=== PATIENT | female | born 1965 | race Caucasian/White ===

== ENCOUNTER 2024-01-29 05:52 | Day surgery (SDC) | payer OTHER, SELFPAY ==
[2024-01-20 16:15] LABS: BASOPHILS # (AUTO) 0.1 X10'3 (0-0.2); BASOPHILS % (AUTO) 0.8 % (0-1); EOSINOPHILS % (AUTO) 0.6 % (0-6); LYMPHOCYTES # (AUTO) 2.6 X10'3 (1.1-4.8); LYMPHOCYTES % (AUTO) 35.5 % (21-51); MEAN CORPUSCULAR HEMOGLOBIN 30.9 PG (27.0-31.0); MEAN CORPUSCULAR HGB CONC 33.5 g/dL (33.0-36.5); MEAN CORPUSCULAR VOLUME 92.2 FL (78-98); MEAN PLATELET VOLUME 8.1 FL (7.4-10.4); MONOCYTES # (AUTO) 0.7 X10'3 (0-0.9); MONOCYTES % (AUTO) 9.3 % (2-12); NEUTROPHILS # (AUTO) 3.9 X10'3 (1.8-7.7); NEUTROPHILS % (AUTO) 53.8 % (42-75); PRE OP HEMATOCRIT 41.5 % (35.0-45.0); PRE OP HEMOGLOBIN 13.9 g/dL (12.0-16.0); PRE OP PLATELET COUNT 203 X10'3 (140-440); PRE OP WHITE BLOOD COUNT 7.2 10'3 (4.8-10.8); RED CELL DISTRIBUTION WIDTH 13.1 % (11.5-14.5)
[2024-01-20 16:16] LABS: BILIRUBIN,URINE NEGATIVE (Neg); CLARITY,URINE CLOUDY (Clear); COLOR,URINE YELLOW (Yellow); GLUCOSE, URINE NEGATIVE (Neg); KETONES,URINE NEGATIVE (Neg); LEUKOCYTE ESTERASE ,URINE SMALL (Neg); NITRITES, URINE NEGATIVE (Neg); OCCULT BLOOD,URINE NEGATIVE (Neg); PROTEIN,URINE NEGATIVE (Neg); UROBILINOGEN,URINE 0.2 E.U/dL (0.2-1.0)
[2024-01-20 16:25] LABS: UA COLLECTION TYPE CLN CATCH MIDSTREAM
[2024-01-20 16:26] LABS: AMORPHOUS PHOSPHATES 3+; BACTERIA,URINE 1+ /HPF (Neg); MUCUS STRANDS FEW /LPF (Neg); RBC,URINE 0-2 /HPF (0-2); SQUAMOUS EPITHELIAL CELL,UR FEW /LPF (FEW); WBC,URINE 0-4 /HPF (0-4)
[2024-01-20 16:30] LABS: ALBUMIN/GLOBULIN RATIO 1.2 (1.1-1.5); ALKALINE PHOSPHATASE 96 IU/L (46-116); BLOOD UREA NITROGEN 14 MG/DL (7-18); CALCIUM 9.3 MG/DL (8.5-10.1); CHLORIDE 105 MMOL/L (99-107); CREATININE 0.61 MG/DL (0.40-0.90); PRE OP ALT 21 U/L (30-65); PRE OP ANION GAP 7 (8-16); PRE OP AST 15 U/L (10-37); PRE OP BILIRUB, TOTAL 0.9 MG/DL (0.0-1.0); PRE OP GLUCOSE 80 MG/DL (70-104); PRE OP POTASSIUM 3.8 MMOL/L (3.4-5.1); PRE OP SODIUM 140 MMOL/L (135-145); TOTAL CARBON DIOXIDE 27.9 MMOL/L (24-32); TOTAL PROTEIN 7.3 G/DL (6.4-8.2); eGFR > 90 ML/MIN
[2024-01-29] VITALS (21 sets, daily range): BP systolic 107–130; BP diastolic 51–79; PULSE 62–77; RESP 15–20; TEMP 97.1–98.7; O2SAT 95–100
[~2024-01-29] VITALS: Ht 172.7 cm; Wt 64.3 kg
[~2024-01-29 05:52] MED LIST: [UNRECOGNIZED DRUG - OTHER] PO
[2024-01-29] MEDS: famotidine 20mg tablet PO ONE (06:23)
[2024-01-29] MEDS: ringers solution, lacted 1,000 ML IV SCH ×3 (06:24→11:15)
[2024-01-29] MEDS: NORMAL SALINE IV ONE (06:26)
[2024-01-29] MEDS: GENTAMICIN IV ONE (06:26)
[2024-01-29] MEDS: clindamycin-Cleocin 900mg/D5W 50 ML IV ONE (06:27)
[2024-01-29] MEDS: neomy sulf/polymyxin B sulf. GU irrigation 1ml amp IR ONE ×2 (07:11→10:17)
[2024-01-29] MEDS ORDERED: midazolam 1 mg/ML 2ml injection ONE (07:26)
[2024-01-29] MEDS ORDERED: fentaNYL/PF 50MCG/1 ML 2ML syringe ONE ×2 (07:26→10:30)
[2024-01-29] MEDS ORDERED: acetaminophen 1,000mg/100ml IV 100 ML IV ONE (07:28)
[2024-01-29] MEDS ORDERED: propofol inj 20 ML IV ONE (07:30)
[2024-01-29] MEDS ORDERED: ondansetron/PF 4mg/2ml inj ONE (07:30)
[2024-01-29] MEDS ORDERED: LIDOcaine 2% (20mg/ml) 5ml vial ONE (07:30)
[2024-01-29] MEDS ORDERED: rocuronium 10mg/ml inj IV ONE ×2 (07:30→09:28)
[2024-01-29] MEDS ORDERED: dexamethasone sod phosphate 4mg/ml inj. ONE (07:31)
[2024-01-29] MEDS ORDERED: sevoflurane 250ml liquid IH ONE (07:35)
[2024-01-29] MEDS ORDERED: morphine 4 MG/ML inj SYRINge IV PRN (08:35)
[2024-01-29] MEDS ORDERED: ondansetron/PF 4mg/2ml inj IV PRN ×2 (08:35→11:15)
[2024-01-29] MEDS ORDERED: morphine 2 MG/ML inj. syringe IV PRN (08:35)
[2024-01-29] MEDS ORDERED: labetalol 20mg/4ml (5mg/ml) syringe IV PRN (08:35)
[2024-01-29] MEDS ORDERED: hydrALAZINE 20mg/ml inj. IV PRN (08:35)
[2024-01-29] MEDS ORDERED: fentaNYL/PF 50MCG/1 ML 2ML syringe IV PRN ×2 (08:35)
[2024-01-29] MEDS: BUPIVAcaine/PF 2.5mg/ml (0.25%) 10ml vial ONE (08:40)
[2024-01-29] MEDS: BUPIVAcaine 2.5mg/ml inj 50ml vial (contains preservative) ONE (08:41)
[2024-01-29] MEDS: vasoPRESSIN 20 units/ml inj. ONE (08:41)
[2024-01-29] MEDS: BUPIVAcaine 0.25% w/Epi /PF 30ml vial ONE (09:53)
[2024-01-29] MEDS: clindamycin phosphate 40gm vag cream ONE (10:22)
[2024-01-29] MEDS ORDERED: fluoroscein sod 10% (100mg/ml) 5ml vial ONE (10:37)
[2024-01-29] MEDS ORDERED: metoclopramide 5 mg/ml inj IV PRN (11:15)
[2024-01-29] MEDS ORDERED: LORazepam 2 mg/ml vial IV PRN (11:15)
[2024-01-29] MEDS ORDERED: HYDROcodone/acetaminophen 10/325mg tab PO PRN (11:15)
[2024-01-29] MEDS ORDERED: magnesium hydroxide 30ml (MOM) UD suspension PO PRN (11:15)
[2024-01-29] MEDS ORDERED: diphenhydrAMINE 50 mg/ml inj IV PRN (11:15)
[2024-01-29] MEDS ORDERED: temazepam 15mg capsule PO PRN (11:15)
[2024-01-29] MEDS ORDERED: normal saline 500ml IV soln 500 ML IV PRN (11:15)
[2024-01-29] MEDS: ketorolac trometh. 30mg/ml inj. IV PRN (14:26)
[2024-01-29] MEDS: HYDROcodone/acetaminophen 10/325mg tab PO PRN (17:58)
[2024-01-29] MEDS: docusate sod 100mg capsule PO SCH (20:10)
[2024-01-30 02:04] VITALS: BP 116/53; PULSE 80; RESP 18; TEMP 99.2; O2SAT 98
[2024-01-30 06:00] VITALS: BP 108/46; PULSE 79; RESP 16; TEMP 98; O2SAT 95
[2024-01-30 06:02] LABS: ALBUMIN 2.9 G/DL (3.4-5.0); ANION GAP 4 (8-16); BLOOD UREA NITROGEN 10 MG/DL (7-18); BUN/CREATININE RATIO 15.6 (10.0-20.0); CALCIUM 8.7 MG/DL (8.5-10.1); CHLORIDE 108 MMOL/L (99-107); CREATININE 0.64 MG/DL (0.40-0.90); GLUCOSE 112 MG/DL (70-104); POTASSIUM 3.9 MMOL/L (3.5-5.1); SODIUM 139 MMOL/L (135-145); TOTAL CARBON DIOXIDE 26.7 MMOL/L (24-32); eCRCL 98 ML/MIN; eGFR > 90 ML/MIN
[2024-01-30 06:04] LABS: BASOPHILS % (AUTO) 0.3 % (0-1); EOSINOPHILS % (AUTO) 0 % (0-6); HEMATOCRIT 34.8 % (35.0-45.0); HEMOGLOBIN 11.7 g/dl (12.0-16.0); LYMPHOCYTES # (AUTO) 1.5 X10'3 (1.1-4.8); LYMPHOCYTES % (AUTO) 10.2 % (21-51); MEAN CORPUSCULAR HGB CONC 33.6 g/dL (33.0-36.5); MEAN CORPUSCULAR VOLUME 92.3 FL (78-98); MONOCYTES # (AUTO) 1.2 X10'3 (0-0.9); MONOCYTES % (AUTO) 8.2 % (2-12); NEUTROPHILS # (AUTO) 11.9 X10'3 (1.8-7.7); NEUTROPHILS % (AUTO) 81.3 % (42-75); PLATELET COUNT 188 X10'3 (140-440); RED BLOOD COUNT 3.77 X10'6 (4.20-5.60); WHITE BLOOD COUNT 14.7 X10'3 (4.5-11.0)
== END 2024-01-30 14:25 | disposition home or self-care (01) ==
LOC: PRE-OP 05:52 → PAS 11:18 → SUR 3N 12:30 → PRE-OP 01-30 14:25
PROVIDERS: ATTEND Obstetrics & Gynecology Obstetrics
DX: N81.89 Other female genital prolapse (principal); J44.9 Chronic obstructive pulmonary disease, unspecified; I20.9 Angina pectoris, unspecified; I25.2 Old myocardial infarction; Z79.899 Other long term (current) drug therapy; Z98.890 Other specified postprocedural states; Z88.1 Allergy status to other antibiotic agents
CPT/HCPCS: 36415; 57260; 57283; 58552; 71046; 80048; 80053; 81001; 82948; 85025; 86885; 86900; 86901; 87081; 87088; J0131; J1100; J1580; J1885; J2250; J2405; J2704; J3010; J3490; J7030; J7040; J7120; Z7506; Z7508; Z7512; A4314; A4618; A7000; G0378; S0020